=== PATIENT | male | born 1995 | race African-American/Black ===

== ENCOUNTER 2019-02-14 16:45 | Inpatient (IN) | payer BC ==
[~2019-02-14] VITALS: Ht 167.6 cm; Wt 62.6 kg
[2019-02-14 17:06] VITALS: Ht 167.6 cm; Wt 62.6 kg
[2019-02-14 18:09] LABS: PLATELET COUNT 221 x10^3mcL (130-400)
[2019-02-14 18:14] LABS: CALCIUM 11.1 mg/dL (8.5-10.1); CARBON DIOXIDE 17.8 mmol/L (21-32); CHLORIDE SERUM 102 mmol/L (98-107); CREATININE SERUM 1.9 mg/dL (0.7-1.3); GFR1 47 mL/min; GLUCOSE SERUM 231 mg/dL (74-106); POTASSIUM SERUM 4.8 mmol/L (3.5-5.1); SODIUM SERUM 145 mmol/L (136-145)
[2019-02-14 18:19] LABS: ALKALINE PHOSPHATASE 95 U/L (46-116); ALT/SGPT 164 U/L (16-63); AST/SGOT 187 U/L (15-37); BILIRUBIN TOTAL 0.5 mg/dL (0.20-1.00)
[2019-02-14 18:23] LABS: TOTAL PROTEIN, SERUM 10.3 g/dL (6.4-8.2)
[2019-02-14 18:54] LABS: BAND NEUTROPHIL 2 % (0-10); BASOPHIL 0 % (0-2); MONOCYTE 3 % (0-7); SEGMENTED NEUTROPHILS 57 % (37-75)
[2019-02-14 18:55] LABS: PLATELET MORPHOLOGY PLATELETS NORMAL; rbc morphology (normal/abnorm) NORMAL (NORMAL)
[2019-02-14 19:27] LABS: AMPHETAMINE QUAL UR NONE DETECTED (See below)
[2019-02-14 20:29] LABS: BASOPHIL % 0.2 % (0-2); PLATELET COUNT 131 x10^3mcL (130-400); RED CELL DISTRIBUTION WIDTH 13.8 % (11.5-14.5)
[2019-02-14 23:41] LABS: CHOLESTEROL/HDL RATIO 4.8; MAGNESIUM 2.1 mg/dL (1.8-2.4); PHOSPHOROUS 3.2 mg/dL (2.5-4.9)
[2019-02-14 23:50] LABS: T3 TOTAL 1.45 ng/mL
[2019-02-15] VITALS: BP 123/72
[2019-02-15 00:04] LABS: FREE T4 1.09 ng/dL (0.76-1.46); FREE THYROXINE INDEX 2.9 ug/dL (1.4-4.5)
[2019-02-15 00:05] VITALS: BP 123/72
[2019-02-15 02:30] LABS: UA SPECIFIC GRAVITY >=1.030 (1.005-1.035); microscopic required? YES; urine erythrocyte 2+ (NEGATIVE)
[2019-02-15 05:39] VITALS: BP 116/60
[2019-02-15 06:56] LABS: CALCIUM 8.1 mg/dL (8.5-10.1); CHLORIDE SERUM 106 mmol/L (98-107); CREATININE SERUM 1.1 mg/dL (0.7-1.3); GFR1 > 60 mL/min; GLUCOSE SERUM 102 mg/dL (74-106); POTASSIUM SERUM 3.9 mmol/L (3.5-5.1); SODIUM SERUM 139 mmol/L (136-145)
[2019-02-15 06:57] LABS: BASOPHIL % 0.2 % (0-2); RED CELL DISTRIBUTION WIDTH 13.5 % (11.5-14.5)
[2019-02-15 07:30] LABS: PLATELET COUNT 121 x10^3mcL (130-400)
[2019-02-15 10:00] VITALS: BP 105/48
[2019-02-15 12:36] VITALS: BP 105/48
[2019-02-15 13:00] VITALS: BP 114/63
== END 2019-02-15 14:35 | disposition home or self-care (01) | DRG 917 ==
LOC: ED 16:45 → DU 22:15
PROVIDERS: Emergency Medicine; ADMIT Family Medicine
DX: T40.5X1A Poisoning by cocaine, accidental (unintentional), initial encounter (principal); G92 Toxic encephalopathy; N17.0 Acute kidney failure with tubular necrosis; E87.2 Acidosis; R74.0 Nonspecific elevation of levels of transaminase and lactic acid dehydrogenase [LDH]; E78.5 Hyperlipidemia, unspecified; J45.909 Unspecified asthma, uncomplicated; R09.02 Hypoxemia; R73.03 Prediabetes; Y92.89 Other specified places as the place of occurrence of the external cause
CPT/HCPCS: 84439; G0480; J0696; J2060; J7030; J7620; Q0092